=== PATIENT | male | born 1975 | race Caucasian/White ===

== ENCOUNTER 2022-12-20 13:05 | Emergency (ER) | payer OTHER, SELFPAY ==
[2022-12-20] VITALS (7 sets, daily range): BP systolic 105–155; BP diastolic 72–97; PULSE 78–115; RESP 15–22; TEMP 37.1; O2SAT 98–100
--- NOTE | ~2022-12-20 | US_ITS ---
US abdomen limited INDICATION: Elevated liver function tests. Chest pain. PROCEDURE: Realtime right upper abdominal ultrasound. COMPARISON: No prior studies for comparison. FINDINGS: The pancreas is normal without focal mass or pancreatic ductal dilation. Liver echotexture is increased, consistent with fatty infiltration. There is normal directional flow in the portal ve in. Gallbladder is surgically absent. Common bile duct measures 2 mm. No sonographic Han's sign. IMPRESSION: 1: Hepatic steatosis. Reviewed, dictated and finalized at location B. IMPRESSION: 1: Hepatic steatosis.
--- NOTE | ~2022-12-20 | CT_ITS ---
EXAMINATION: CTA chest PE protocol DATE: 12/20/2022 14:57 INDICATION: Sudden onset chest pain and shortness of breath TECHNIQUE: Computed tomography (CT) pulmonary angiogram of the chest was performed with 100 mL Omnipa que-350 intravenous contrast. Additional 3D reconstructions utilizing coronal maximum intensity proje ction (MIP) were performed. Automated exposure control and iterative reconstruction technique were em ployed. The dose-length product was 278.57 mGy-cm. COMPARISON: None FINDINGS: Excellent contrast opacification of the pulmonary arteries. No pulmonary embolism. Small calcified ri ght lower lobe nodule consistent with old granulomatous disease. No pneumonia, pulmonary edema, pleur al effusion or pneumothorax. Heart size is normal. No pericardial effusion. Thoracic aorta is normal in caliber with no dissection. No pathologically enlarged thoracic lymphadenopathy. Small sliding-ty pe hiatal hernia and changes of prior gastric bypass procedure. Cholecystectomy clips in the gallblad shauna fossa. Diffuse hepatic steatosis. Several old right-sided rib fractures. Mild thoracic spondylosi s. IMPRESSION: 1. No pulmonary embolism or other acute cardiopulmonary disease. 2. Small sliding-type hiatal hernia. Reviewed, dictated and finalized at location A.
--- NOTE | ~2022-12-20 | XR_ITS ---
EXAMINATION: XR chest 1V portable DATE: 12/20/2022 13:36 INDICATION: Chest pain. Shortness of breath. TECHNIQUE: A single frontal view of the chest was obtained. COMPARISON: None. FINDINGS: There is no pneumonia, pleural effusion, or pneumothorax. The heart size is normal. There i s an old healed fracture of right eighth rib. IMPRESSION: 1. No acute cardiopulmonary disease. Reviewed, dictated and finalized at location A.
--- NOTE | 2022-12-20 13:12 | ECG_ITS ---
Measurements Intervals Reeder Rate: 89 P: 30 AR: 122 QRS: 21 QRSD: 88 T: 32 QT: 364 QTc: 445 Interpretive Statements SINUS RHYTHM WITH MARKED SINUS ARRHYTHMIA NO PREVIOUS ECG AVAILABLE FOR COMPARISON Electronically Signed On 12-21-2022 15:53:38 CDT by Jordan Alford M.D.
--- NOTE | 2022-12-20 13:21 | ED.CHESTPAIN ---
HPI - Chest Pain General Chief Complaint: Chest Pain Stated Complaint: cp Time Seen by Provider: 12/20/22 13:13 History of Present Illness HPI narrative: Patient is a 47-year-old male with history of HTN, chronic pancreatitis here with chest pain. 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 He notes it was sudden onset, midsternal and left parasternal and radiate into the neck. He notes it was associated with some shortness of breath and bilateral upper extremity tremors. He received nitroglycerin EN route which significantly improved his pain. He notes it is just mild at this time. He denies prior cardiac history. He does note a stress test which was normal several years ago. He is from the [facility] and is local for work. he additionally does complain of some subjective fever and myalgias as well as diarrhea which has been present for the last few days. He notes the prior history of COVID x3 or 4 and did receive an initial COVID vaccination. No known sick contacts. No calf pain or leg swelling, no prior PE/DVT. Related Data Allergies Allergy/AdvReac Type Severity Reaction Status Date / Time heparin Allergy Other Verified 12/20/22 13:15 Review of Systems Review of Systems: All systems reviewed & are unremarkable except as noted in HPI and below Exam Narrative: GENERAL: Well-appearing, well-nourished, and in no acute distress. HEAD: Normocephalic, atraumatic. EYES: PERRLA and EOMI. ENT: Nares clear. Mucous membranes moist. NECK: Supple. CHEST: Clear to auscultation. No respiratory distress. HEART: Regular rate and rhythm. Normal peripheral pulses. ABDOMEN: Soft, nontender, nondistended. EXTREMITIES: Normal range of motion. No edema. SKIN: Warm, dry, no rash. NEURO: No focal deficits. Alert and oriented x3. PSYCH: Normal mood and affect. Course Course Emergency Course: Chart review performed. Patient here with chest pain and shortness of breath. Given 3 nitro by EMS. Triage vitals show tachycardia, repeat within normal limits. Patient seen and evaluated, in no acute distress. Chest pain is nearly resolved at this time. Cardiac risk factor of hypertension and chewing tobacco, no cardiac history. 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 Lab work and imaging reviewed, CBC grossly unremarkable, electrolytes show elevated AST/ALT otherwise normal. Will do RUQ ultrasound. Initial troponin normal. D-dimer and viral swabs pending. D-dimer elevated, will do CTA-PE study. Abdominal ultrasound shows hepatic steatosis. CTA shows no PE. HEART score of 3. Will do repeat troponin and shared decision making regarding inpatient versus outpatient cardiac workup. Repeat troponin negative. The results of pertinent diagnostic studies and exam findings were discussed. The patient?s provisional diagnosis and plan of care were discussed with the patient and present family. The patient and/or present family expressed understanding of the diagnosis and plan. The nurse was instructed to provide written instructions and appropriate follow-up information. The patient understands their need and responsibility to obtain additional follow-up as instructed. The risks of medications administered and prescribed were discussed with the patient and family present. Vital Signs Vital signs: Vital Signs Temperature 98.8 F 12/20/22 13:02 Pulse Rate 115 H 12/20/22 13:02 Respiratory Rate 20 12/20/22 13:02 Blood Pressure 143/96 H 12/20/22 13:02 Pulse Oximetry 100 12/20/22 13:02 Oxygen Delivery Room Air 12/20/22 13:02 Temperature 98.8 F 12/20/22 13:02 Pulse Rate 100 12/20/22 18:41 Respiratory Rate 20 12/20/22 18:41 Blood Pressure 139/76 12/20/22 18:41 Pulse Oximetry 98 12/20/22 18:41 Oxygen Delivery Room Air 12/20/22 13:02
[2022-12-20 13:24] LABS: Basophils Percent Auto 0.7 % (0.2-1.2); Eosinophils Percent Auto 0.2 % (0-4.4); Hematocrit 42.8 % (42.0-52.0); Immature Granulocyte Absolute 0.02 K/mm3 (0.00-0.031); Immature Granulocyte Percent A 0.4 % (0-0.5); Lymphocytes Absolute Auto 0.74 K/mm3 (0.9-3.2); Lymphocytes Percent Auto 13.8 % (18.3-44.2); Mean Corpuscular Hemoglobin 34.5 pg (26-34); Mean Corpuscular Volume 98.4 fl (80-100); Mean Platelet Volume 10.5 fl (7.4-10.4); Monocytes Absolute Auto 0.5 K/mm3 (0.1-0.6); Monocytes Percent Auto 9.1 % (2.6-8.5); Neutrophils Absolute Auto 4.1 K/mm3 (1.3-6.7); Neutrophils Percent Auto 75.8 % (45.5-73.1); Platelet Count Result 141 k/mm3 (150-375); Red Blood Count 4.35 M/mm3 (4.6-6.20); Red Cell Distribution Width 11.9 % (11.5-14.5); White Blood Count 5.4 K/mm3 (4.5-10.0)
[2022-12-20 13:36] LABS: Alanine Aminotransferase 200 U/L (6-50); Albumin Level 4.5 g/dL (3.5-5.1); Alkaline Phosphatase 157 U/L (38-126); Anion Gap 12 mmol/L (8-16); Aspartate Amino Transferase 463 U/L (17-59); Bilirubin,Total 0.8 mg/dL (0.2-1.3); Blood Urea Nitrogen 7 mg/dL (9-20); Calcium 9.1 mg/dL (8.4-10.2); Carbon Dioxide 25 mmol/L (22-30); Chloride 99 mmol/L (98-107); Estimated CRCL calculation 89 ml/min; Estimated Glomerular Filt Rate > 60; Glucose 130 mg/dL (65-110); INR 0.9; Lipase 124 U/L (23-300); Potassium 3.8 mmol/L (3.4-5.0); Prothrombin Time 12.8 Seconds (11.1-14.7); Sodium 136 mmol/L (137-145)
[2022-12-20 13:37] LABS: Partial Thromboplastin Time 28.4 SECONDS (22.3-36.8)
[2022-12-20 13:47] LABS: Troponin I < 0.012 ng/mL (0.000-0.034)
[2022-12-20 14:06] LABS: D Dimer 3.73 ug/mL (<0.48)
--- NOTE | 2022-12-20 14:25 | PC.NURSE ---
Pt to U/S via w/c at this time, pt remains on radiation monitor.
[2022-12-20 14:37] LABS: Influenza A QL RT-PCR Negative (Negative); Influenza B QL RT-PCR Negative (Negative); RSV RNA, RT-PCR Negative (Negative); SARS-CoV-2 RNA PCR Negative (Negative)
[2022-12-20] MEDS: KETOROLAC 15 MG/ML VIAL (*BKC) IV PUSH (15:24)
[2022-12-20] MEDS: MORPHINE SULFATE (*CRX) 4 MG/ML INJ IV PUSH (16:48)
[2022-12-20] MEDS: ONDANSETRON INJ 4 MG/2 ML VIAL IV PUSH (16:48)
[2022-12-20 18:02] LABS: Troponin I < 0.012 ng/mL (0.000-0.034)
== END 2022-12-20 18:41 | disposition home or self-care (01) ==
PROVIDERS: Emergency Medicine; Emergency Provider Student in an Organized Health Care Education/Training Program
DX: R07.9 Chest pain, unspecified (principal); R06.02 Shortness of breath; Z20.822 Contact with and (suspected) exposure to COVID-19; I10 Essential (primary) hypertension; K86.1 Other chronic pancreatitis; Z86.16 Personal history of COVID-19; K76.0 Fatty (change of) liver, not elsewhere classified; K44.9 Diaphragmatic hernia without obstruction or gangrene
CPT/HCPCS: 36415; 71045; 71275; 76705; 80053; 83690; 84484; 85025; 85380; 85610; 85730; 87637; 93005; 96374; 96375; 99284; J1885; J2270; J2405; Q9967